=== PATIENT | male | born 1940 | race Caucasian/White ===

== ENCOUNTER 2022-04-22 13:27 | Observation (INO) ==
[2022-04-22 14:00] LABS: Basophils # 0.1 10*3/uL (0.0-0.2); Basophils % 0.8 % (0.0-0.8); Eosinophils # 0.3 10*3/uL (0.0-0.87); Eosinophils % 1.9 % (0.00-10.9); Hematocrit 48.7 VOL% (42.0-52.0); Hemoglobin 16.6 GM/DL (14.0-18.0); Immature Granulocytes % 0.3 %; Immature Granulocytes Absolute 0.05 #; Lymphocytes # 2.1 10*3/uL (1.4-4.0); Lymphocytes % 14.6 % (21.2-54.2); Mean Corpuscular HGB Conc 34.1 GM/DL (32-36); Mean Corpuscular Volume 89.9 FL (87-102); Monocytes # 1.5 10*3/uL (0.11-0.8); Monocytes % 10.6 % (1.7-12.7); Neutrophils % 71.8 % (38.7-73.9); Platelet Count 185 T/CUMM (130-400); Red Blood Count 5.42 MC/CUMM (3.8-5.5); Red Cell Distribution Width 13.4 % (9.3-17.3); White Blood Count 14.4 T/CUMM (4-12)
[2022-04-22 14:21] LABS: Albumin 3.9 G/DL (3.4-5.0); Bilirubin,Total 0.9 MG/DL (0.20-1.00); Calcium 9.3 MG/DL (8.5-10.1); Osmolality,Calculated 280.3 MOS/KG (273-304); Potassium 3.5 MMOL/L (3.5-5.1); Total Protein 7.3 G/DL (6.4-8.2)
[2022-04-22 14:25] LABS: INR 1.2; PT Patient Result 12.9 SECS (10.1-12.1); Partial Thromboplastin Time 30.3 SECS (23.7-32.9)
[2022-04-22] MEDS ORDERED: FUROSEMIDE 40 MG/4 ML VIAL IV STA (14:33)
[2022-04-22] MEDS ORDERED: ONDANSETRON 4 MG/2 ML VIAL IV PRN (16:11)
[2022-04-22] MEDS ORDERED: ACETAMINOPHEN 325 MG TABLET PO PRN (16:11)
[2022-04-22] MEDS ORDERED: hydrALAZINE 20 MG/1 ML VIAL IV PRN (16:39)
[2022-04-22] MEDS: APIXABAN 5 MG TABLET PO SCH (22:02)
[2022-04-22] MEDS: allopurinoL 100 MG TABLET PO SCH (22:02)
[2022-04-22] MEDS: FUROSEMIDE 40 MG/4 ML VIAL IV SCH (22:02)
[2022-04-22] MEDS: atenoloL 50 MG TABLET PO SCH (22:02)
[2022-04-22] MEDS: FLECAINIDE 50 MG TABLET PO SCH (22:02)
[2022-04-23 06:28] LABS: Basophils # 0.1 10*3/uL (0.0-0.2); Basophils % 0.8 % (0.0-0.8); Eosinophils # 0.3 10*3/uL (0.0-0.87); Eosinophils % 3.2 % (0.00-10.9); Hematocrit 48.4 VOL% (42.0-52.0); Hemoglobin 16.2 GM/DL (14.0-18.0); Immature Granulocytes % 0.5 %; Immature Granulocytes Absolute 0.05 #; Lymphocytes # 1.8 10*3/uL (1.4-4.0); Lymphocytes % 16.5 % (21.2-54.2); Mean Corpuscular HGB Conc 33.5 GM/DL (32-36); Mean Corpuscular Volume 90.8 FL (87-102); Mean Platelet Volume 12.4 FL (9.6-12.0); Monocytes # 1.1 10*3/uL (0.11-0.8); Platelet Count 170 T/CUMM (130-400); Red Blood Count 5.33 MC/CUMM (3.8-5.5); Red Cell Distribution Width 13.2 % (9.3-17.3); White Blood Count 10.7 T/CUMM (4-12)
[2022-04-23 06:40] LABS: Calcium 9.2 MG/DL (8.5-10.1); Potassium 3.4 MMOL/L (3.5-5.1); Risk Ratio 2.86; VLDL Cholesterol 18.4 MG/DL
[2022-04-23] MEDS ORDERED: POTASSIUM CHLORIDE 20 MEQ TABLET PO ONE (07:55)
[2022-04-23] MEDS: DILTIAZEM CD 120 MG CAPSULE PO SCH (08:55)
[2022-04-23] MEDS: APIXABAN 5 MG TABLET PO SCH ×2 (08:56→21:36)
[2022-04-23] MEDS: allopurinoL 100 MG TABLET PO SCH ×2 (08:56→21:36)
[2022-04-23] MEDS: PANTOPRAZOLE 40 MG TABLET PO SCH (08:56)
[2022-04-23] MEDS: FLECAINIDE 50 MG TABLET PO SCH ×2 (08:56→21:35)
[2022-04-23] MEDS: FUROSEMIDE 40 MG/4 ML VIAL IV SCH ×2 (08:58→16:59)
[2022-04-23] MEDS: atenoloL 50 MG TABLET PO SCH ×2 (09:02→21:35)
[2022-04-24 06:48] LABS: Calcium 9.2 MG/DL (8.5-10.1); Potassium 3.2 MMOL/L (3.5-5.1)
[2022-04-24] MEDS ORDERED: FUROSEMIDE 40 MG TABLET PO SCH (08:00)
[2022-04-24 08:42] VITALS: BP 130/96
[2022-04-24] MEDS: atenoloL 50 MG TABLET PO SCH (08:47)
[2022-04-24] MEDS: PANTOPRAZOLE 40 MG TABLET PO SCH (08:47)
[2022-04-24] MEDS: APIXABAN 5 MG TABLET PO SCH (08:47)
[2022-04-24] MEDS: DILTIAZEM CD 120 MG CAPSULE PO SCH (08:47)
[2022-04-24] MEDS: FLECAINIDE 50 MG TABLET PO SCH (08:47)
[2022-04-24] MEDS: allopurinoL 100 MG TABLET PO SCH (08:48)
[2022-04-24] MEDS ORDERED: POTASSIUM CHLORIDE 20 MEQ TABLET PO SCH (09:00)
== END 2022-04-24 10:40 | disposition home or self-care (01) ==
LOC: N.ED 13:27 → N.EDINP 13:27 → N.TELEN 18:20
PROVIDERS: ADMIT Internal Medicine Cardiovascular Disease; ATTEND Internal Medicine Cardiovascular Disease